=== PATIENT | female | born 1955 | race Two or more races ===

== ENCOUNTER 2024-07-31 13:07 | Inpatient (IN) | payer OTHER ==
[~2024-07-31] VITALS: Ht 154.9 cm; Wt 86.2 kg
[~2024-07-31 13:07] MED LIST: CIPRO500 MG PO; DOLOGEN CAPLET1 EACH PO; FLAGYL500MG PO; IRBESARTAN75 MG; LEVAQUIN750 MG PO; LIDODERM30 EA TP; MEDROL4 MG PO; PREDNISONE10 MG PO; SYNTHROID137 MCG; TUSSIONEX PENNKI5 ML PO; ULTRACET PO; ZITHROMAX500 MG PO
--- NOTE | 2024-07-31 13:32 | NUR ---
PTE ALERTA Y ORIENTADA X3 VERBALIZA SER PACIENTE DE DIVERTICULO Y TENER DOLOR ABDOMINAL. SE LE CAROLEE S/V Y SE UBICA
[2024-07-31] MEDS ORDERED: HYOSCYAMINE SULFATE 0.125 MG TAB.SUBL SL ONE (15:15)
[2024-07-31] MEDS ORDERED: FAMOTIDINE/PF 20 MG/2 ML VIAL ONE (15:15)
[2024-07-31] MEDS ORDERED: FAMOTIDINE/PF 20 MG/2 ML VIAL IV ONE (15:15)
[2024-07-31] MEDS ORDERED: 0.9 % SODIUM CHLORIDE 500 ML IV ONE (15:15)
[2024-07-31] MEDS ORDERED: HYOSCYAMINE SULFATE 0.125 MG TAB.SUBL ONE (15:15)
--- NOTE | 2024-07-31 15:25 | NUR ---
SE EDUCA PACIENTE SOBRE EL [place] MEDICO YT ESTA REFIERE ENTENDER. SE CAROLEE MUESTRAS DE LABORATORIOS Y SE ENVIAN. SE CANALIZA Y SE ADMINITRA MEDICAMENTOS LY ORDEN MEDICA
[2024-07-31 15:28] LABS: HEMOGLOBIN 12.3 g/dL (12.0-15.00); MEAN CORPUSCULAR HEMOGLOBIN 27.1 pg (27.00-32.0); MEAN CORPUSCULAR HGB CONC 33.1 g/dl (32.0-36.0); PLATELET COUNT 290 K/uL (150-450); RED BLOOD COUNT 4.51 M/uL (4.00-6.00); RED CELL DISTRIBUTION WIDTH 13.6 % (11.5-14.5)
[2024-07-31 16:08] LABS: ALBUMIN 3.4 gm/dL (3.4-5.0); BILIRUBIN TOTAL 0.21 mg/dL (0.3-1.2); CALCIUM 9.4 mg/dL (8.5-10.1); CREATININE SERUM 1.11 mg/dL (0.55-1.02); GFR 48.74; GLOBULINA 4.3 G/DL (2.4-3.5); POTASSIUM 3.69 mEq/L (3.5-5.1); TOTAL PROTEIN 7.7 gm/dL (6.4-8.2)
[2024-07-31] MEDS ORDERED: MORPHINE SULFATE 4 MG/ML VIAL IV ONE (16:45)
[2024-07-31] MEDS ORDERED: PIPERACILLIN/TAZOBACTAM SODIUM 3.375 GM VIAL IV ONE ×2 (16:45→17:06)
[2024-07-31] MEDS ORDERED: LIDOCAINE HCL VISCOUS 20MG/ML BLIST 15ML MM ONE (19:10)
--- NOTE | 2024-07-31 19:36 | NUR ---
SE COLOCA NGT # 16 EN FOSA IZQUIERDA SE CONFIRMA MEDIANTE AUSCULTACION SE NICKY EN LIS
[2024-07-31] MEDS ORDERED: ENOXAPARIN SODIUM 40 MG/0.4 ML SYRINGE SUBCUTANEO SCH (20:19)
[2024-07-31] MEDS ORDERED: hydrALAZINE HCL 20 MG VIAL IV PRN (20:30)
[2024-07-31] MEDS ORDERED: MORPHINE SULFATE 2 MG/ML CARTRIDGE IV PRN ×2 (20:30)
[2024-07-31] MEDS ORDERED: 0.9 % SODIUM CHLORIDE 1,000 ML IV SCH (20:30)
[2024-07-31] MEDS ORDERED: PIPERACILLIN/TAZOBACTAM SODIUM 3.375 GM in 0.9 % SODIUM CHLORIDE 100 ML IV SCH (21:00)
[2024-07-31] MEDS ORDERED: ENOXAPARIN SODIUM 40 MG/0.4 ML SYRINGE SUBCUTANEO ONE (22:04)
[2024-07-31 22:28] VITALS: BP 112/71; O2SAT 95
[2024-07-31 22:58] LABS: PARTIAL THROMBOPLASTIN TIME 24.2 SECONDS (22.0-34.0); PROTHROMBIN TIME 10.9 SECONDS (9.0-11.5)
[2024-08-01 01:24] LABS: PH,URINE 5.5 (5.0-8.0); URINE APPEARANCE Clear; URINE BILIRRUBIN Negative (NEGATIVE); URINE BLOOD Small; URINE COLOR Yellow; URINE GLUCOSE Negative (NEGATIVE); URINE KETONE Negative (NEGATIVE); URINE LEUKOCYTE Trace; URINE NITRATE Negative; URINE PROTEIN Trace (NEGATIVE); URINE UROBILINOGEN 0.2 E.U./dl
[2024-08-01 01:27] LABS: URINE BACTERIA 39.1 uL (0.0-1933); URINE EPITHELIAL CELLS 6.8 uL (0.0-38.8); URINE RBC 25.7 uL (0.0-20.8); URINE WBC 22.4 uL (0.0-23.2)
[2024-08-01 01:58] LABS: URINE CAST 0.44 uL (0.0-1.40)
[2024-08-01 08:00] VITALS: BP 157/95; O2SAT 97
[2024-08-01 16:45] VITALS: BP 149/82; O2SAT 98
[2024-08-01] MEDS ORDERED: MORPHINE SULFATE 4 MG/ML CARTRIDGE IV PRN (17:15)
[2024-08-02 00:36] VITALS: BP 122/68; O2SAT 97
[2024-08-02 08:17] VITALS: BP 127/71; O2SAT 95
[2024-08-02 10:26] LABS: HEMATOCRIT 31.9 % (36.0-45.00); HEMOGLOBIN 10.8 g/dL (12.0-15.00); MEAN CELL VOLUME 80.9 fL (80.00-100.00); MEAN CORPUSCULAR HEMOGLOBIN 27.4 pg (27.00-32.0); MEAN CORPUSCULAR HGB CONC 33.9 g/dl (32.0-36.0); PLATELET COUNT 241 K/uL (150-450); RED BLOOD COUNT 3.94 M/uL (4.00-6.00); RED CELL DISTRIBUTION WIDTH 14.3 % (11.5-14.5)
[2024-08-02 10:56] LABS: ALBUMIN 2.8 gm/dL (3.4-5.0); BILIRUBIN TOTAL 0.4 mg/dL (0.3-1.2); CALCIUM 8.2 mg/dL (8.5-10.1); CREATININE SERUM 0.87 mg/dL (0.55-1.02); GFR 64.56; GLOBULINA 3.3 G/DL (2.4-3.5); POTASSIUM 3.45 mEq/L (3.5-5.1); TOTAL PROTEIN 6.1 gm/dL (6.4-8.2)
[2024-08-02] MEDS ORDERED: POTASSIUM CHLORIDE 20MEQ/100ML H2O PB IV NR (14:30)
[2024-08-02 17:37] VITALS: BP 137/80; O2SAT 98
[2024-08-03 01:11] VITALS: BP 148/80; O2SAT 95
[2024-08-03 07:09] LABS: CALCIUM 8.4 mg/dL (8.5-10.1); CREATININE SERUM 0.7 mg/dL (0.55-1.02); GFR 82.97; POTASSIUM 4.34 mEq/L (3.5-5.1)
[2024-08-03 08:00] VITALS: BP 140/90; O2SAT 98
[2024-08-03 16:00] VITALS: BP 121/72; O2SAT 99
== END 2024-08-03 18:11 | disposition home or self-care (01) | DRG 390 ==
LOC: ER 13:07 → SURH 20:32
PROVIDERS: Emergency Medicine; General Practice; Internal Medicine; ADMIT Internal Medicine; ATTEND Internal Medicine
PROC: BW21ZZZ Computerized Tomography (CT Scan) of Abdomen and Pelvis (ICD-10-PCS; principal; 2024-07-31)
PROC: 0DH68UZ Insertion of Feeding Device into Stomach, Via Natural or Artificial Opening Endoscopic (ICD-10-PCS; 2024-07-31)
DX: K56.699 Other intestinal obstruction unspecified as to partial versus complete obstruction (principal); E86.0 Dehydration; K52.9 Noninfective gastroenteritis and colitis, unspecified; E03.9 Hypothyroidism, unspecified; I10 Essential (primary) hypertension

== ENCOUNTER 2025-03-22 17:25 | Inpatient (IN) | payer OTHER ==
[~2025-03-22] VITALS: Ht 162.6 cm; Wt 72.6 kg
--- NOTE | 2025-03-22 18:16 | NUR ---
PTE ALERTA Y ORIENTADA X3 ESFERAS QUIEN REFIERE DESDE ESTA MANANA DOLOR ABDOMINAL LUEGO DE INGERIR KAILA DUC.
[2025-03-22] MEDS ORDERED: ATORVASTATIN CA10 MG (18:19)
[2025-03-22] MEDS ORDERED: ATACAND HCT 161 EACH (18:19)
[2025-03-22] MEDS ORDERED: FAMOTIDINE/PF 20 MG in 0.9 % SODIUM CHLORIDE 8 ML IV PUSH STA (18:49)
[2025-03-22] MEDS ORDERED: MORPHINE SULFATE 2 MG/ML SYRINGE IV ONE (19:00)
[2025-03-22] MEDS ORDERED: ONDANSETRON HCL 2 MG/ML VIAL IV ONE (19:00)
[2025-03-22] MEDS ORDERED: ONDANSETRON HCL 2 MG/ML VIAL ONE (19:02)
[2025-03-22] MEDS ORDERED: FAMOTIDINE/PF 20 MG/2 ML VIAL ONE (19:02)
--- NOTE | 2025-03-22 19:10 | NUR ---
SE ORIENTA A PACIENTE SOBRE [place] MEDICO, REFIERE ENTENDER. SE REALIZAN MUESTRAS DE LABORATORIO BAJO MEDIDAS ASEPTICAS. SE ADMINISTRAN MEDICAMENTOS LY ORDEN MEDICA. SE COORDINA [place].
[2025-03-22 19:14] LABS: BASO % 0.3 % (0.1-1.2); EOS # 0.02 (0.04-0.54); EOS % 0.1 % (0.7-7.0); LYMPH # 1.08 (1.18-3.74); LYMPH % 7.0 % (19.3-53.1); MEAN PLATELET VOLUME 9.60 fl (9.4-12.4); MONO # 0.57 (0.24-0.82); MONO % 3.7 % (4.7-12.5); NEUT # 13.67 (1.56-6.13); NEUT % 88.7 % (34.0-71.1); RED CELL DISTRIBUTION WIDTH 13.8 % (11.6-14.4)
[2025-03-22] MEDS ORDERED: MORPHINE SULFATE 4 MG/ML CARTRIDGE IV ONE (19:15)
[2025-03-22 19:41] LABS: ALT/SGPT 21.0 U/L (12-78); AST/SGOT 16.0 U/L (15-37); BILIRUBIN TOTAL 0.43 mg/dL (0.3-1.2); BUN CREA RATIO 17.0 (7.0-25.0); CREATININE SERUM 0.81 mg/dL (0.55-1.02); GFR 70.11; GLOBULINA 4.6 G/DL (2.4-3.5); GLUCOSE FASTING 122.0 mg/dL (65-100); OSMOLALITY SERUM 281.0 MOSM/KG (275-295)
[2025-03-22] MEDS ORDERED: 0.9 % SODIUM CHLORIDE 1,000 ML IV STA (22:27)
[2025-03-22] MEDS ORDERED: MORPHINE SULFATE 4 MG/ML CARTRIDGE IV PRN (22:30)
[2025-03-22] MEDS ORDERED: PIPERACILLIN/TAZOBACTAM SODIUM 3.375 GM VIAL IV ONE (23:35)
[2025-03-23] MEDS ORDERED: PIPERACILLIN/TAZOBACTAM SODIUM 3.375 GM in DEXTROSE 5 % IN WATER 100 ML IV SCH
--- NOTE | 2025-03-23 | NUR ---
SE RECIBE PTE ALERTA Y ORIENTADA X3, CANALIZADA Y RECIBIENOD IV FLUIDS, EN ESPERA DE RESULTADOS DE LABORATORIO.
[2025-03-23 00:34] LABS: INR 1.0
[2025-03-23 04:20] LABS: URINE APPEARANCE Clear; URINE BILIRRUBIN Negative (NEGATIVE); URINE BLOOD Small; URINE COLOR Yellow; URINE GLUCOSE Negative (NEGATIVE); URINE KETONE Negative (NEGATIVE); URINE LEUKOCYTE Negative; URINE NITRATE Negative; URINE PROTEIN Negative (NEGATIVE); URINE UROBILINOGEN 0.2 E.U./dl
[2025-03-23 04:23] LABS: URINE BACTERIA 22.8 uL (0.0-1933); URINE EPITHELIAL CELLS 3.5 uL (0.0-38.8); URINE RBC 29.1 uL (0.0-20.8); URINE WBC 17.1 uL (0.0-23.2)
[2025-03-23 04:53] LABS: URINE CAST 0.00 uL (0.0-1.40)
[2025-03-23] MEDS ORDERED: HYOSCYAMINE SULFATE 0.125 MG TAB.SUBL SL ONE (05:30)
[2025-03-23] MEDS ORDERED: HYOSCYAMINE SULFATE 0.125 MG TAB.SUBL ONE (06:46)
[2025-03-23] MEDS ORDERED: PIPERACILLIN/TAZOBACTAM SODIUM 3.375 GM VIAL IV ONE ×3 (06:46→14:58)
[2025-03-23] MEDS ORDERED: PROMETHAZINE HCL 50 MG/ML AMPUL IM STA (07:01)
[2025-03-23] MEDS ORDERED: FAMOTIDINE/PF 20 MG/2 ML VIAL IV PUSH STA (07:01)
[2025-03-23] MEDS ORDERED: PROMETHAZINE HCL 50 MG/ML AMPUL IM ONE (07:15)
[2025-03-23] MEDS ORDERED: FAMOTIDINE/PF 20 MG/2 ML VIAL ONE ×2 (07:15→14:57)
--- NOTE | 2025-03-23 08:50 | NUR ---
SE LE ORIENTA A PACIENTE SOBRE NUEVO TRATAMIENTO MEDICO Y REFIRE ENTENDER, SE UBICA PACIENTE EN CAMA, SE LE INSERTA SONDA NASOGASTRICA #16 EN FOSA NASAL DERECHA. SE AUSCULTA LA MISMA Y SE ENCUENTRA EN [place], SE OSBERVA CON EGRESO COLOR COFFE GROUND CON 100ML EN SUCCION, SE CONECTA A SUCCION INTERMITENTE, SE MANTIENE BAJO OBSERVACION POR CAMBIOS EN GR CONDICION MEDICA.
[2025-03-23] MEDS ORDERED: PIPERACILLIN/TAZOBACTAM SODIUM 3.375 GM in 0.9 % SODIUM CHLORIDE 100 ML IV SCH ×3 (12:00→18:00)
[2025-03-23] MEDS ORDERED: FAMOTIDINE/PF 20 MG in 0.9 % SODIUM CHLORIDE 100 ML IV SCH (14:22)
[2025-03-23] MEDS ORDERED: MORPHINE SULFATE 2 MG/ML SYRINGE IV PRN (16:30)
[2025-03-23] MEDS ORDERED: 0.9 % SODIUM CHLORIDE 1,000 ML IV SCH (16:30)
[2025-03-23] MEDS ORDERED: MORPHINE SULFATE 4 MG/ML VIAL IV PRN (19:15)
[2025-03-23 19:44] VITALS: BP 98/51
[2025-03-23 20:05] VITALS: BP 130/80
[2025-03-24 03:04] VITALS: BP 123/77; O2SAT 98
[2025-03-24 07:02] LABS: BASO % 0.4 % (0.1-1.2); EOS # 0.13 (0.04-0.54); EOS % 1.6 % (0.7-7.0); LYMPH # 1.54 (1.18-3.74); LYMPH % 19.4 % (19.3-53.1); MEAN PLATELET VOLUME 10.30 fl (9.4-12.4); MONO # 0.61 (0.24-0.82); MONO % 7.7 % (4.7-12.5); NEUT # 5.62 (1.56-6.13); NEUT % 70.6 % (34.0-71.1); RED CELL DISTRIBUTION WIDTH 14.3 % (11.6-14.4)
[2025-03-24 07:41] LABS: BUN CREA RATIO 15.0 (7.0-25.0); CREATININE SERUM 0.68 mg/dL (0.55-1.02); GFR 85.79; GLUCOSE FASTING 79.0 mg/dL (65-100); OSMOLALITY SERUM 290.0 MOSM/KG (275-295)
[2025-03-24] MEDS ORDERED: FAMOTIDINE/PF 20 MG/2 ML VIAL ONE (07:58)
[2025-03-24 09:01] VITALS: BP 129/79; O2SAT 96
[2025-03-24] MEDS ORDERED: POTASSIUM CHLORIDE IN WATER 100 ML IV SCH (16:00)
[2025-03-24 19:07] VITALS: BP 117/70; O2SAT 97
[2025-03-25 03:29] VITALS: BP 113/70; O2SAT 99
[2025-03-25 09:11] VITALS: BP 118/72; O2SAT 97
[2025-03-25 18:42] VITALS: BP 125/75; O2SAT 97
[2025-03-26 03:03] VITALS: BP 116/73; O2SAT 98
[2025-03-26 08:51] VITALS: BP 146/77; O2SAT 97
== END 2025-03-26 11:44 | disposition home or self-care (01) | DRG 390 ==
LOC: ER 17:25 → MEDI 03-23 14:21
PROVIDERS: General Practice; Physician Assistant Medical; ADMIT Internal Medicine; ATTEND Internal Medicine
PROC: BW21YZZ Computerized Tomography (CT Scan) of Abdomen and Pelvis using Other Contrast (ICD-10-PCS; principal; 2025-03-22)
PROC: 0DH68UZ Insertion of Feeding Device into Stomach, Via Natural or Artificial Opening Endoscopic (ICD-10-PCS; 2025-03-23)
DX: K56.699 Other intestinal obstruction unspecified as to partial versus complete obstruction (principal); K52.9 Noninfective gastroenteritis and colitis, unspecified; E86.0 Dehydration